=== PATIENT | female | born 1965 | race Two or more races ===

== ENCOUNTER 2016-10-14 | Emergency (ER) | payer OTHER | END 2016-10-14 13:23 | disposition home or self-care (01) ==

== ENCOUNTER 2017-02-26 12:17 | Emergency (ER) | payer OTHER ==
--- NOTE | 2017-02-26 13:10 | ED Physician Documentation ---
PD HPI FOCAL NEURO - Stated complaint Stated Complaint: LEFT SIDE FACE NUMBNESS - Chief complaint Chief Complaint: Neuro - History obtained from History obtained from: Patient - History of Present Illness Timing - onset: Other (She has a history of Gao's palsy once. Starting early this morning she developed a droop of the right side of the face, does not spare the forehead. She denies diplopia, ear pain, loss of hearing, or complaints of weakness, numbness, or tingling in the extremities or headache. 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 : None HEENT: None Psych: None Musculoskeletal: None Derm: None - Past Surgical History Past Surgical History: Yes General: Cholecystectomy /MERGERS AND ACQUISITIONS CONSULTANT: Hysterectomy - Present Medications Home Medications: Ambulatory Orders Medication Instructions Recorded Confirmed Lisinopril [Prinivil] 5 mg PO DAILY 09/12/14 02/26/17 Acyclovir [Zovirax] 800 mg PO 5XD #50 tablet 02/26/17 Propylene Glycol/Peg 400 1 drops LEFTEYE Q1HR PRN #1 bot 02/26/17 [Lubricant Eye Drops] predniSONE [Deltasone] 20 mg PO [id number] #21 tab 02/26/17 - Allergies Allergies/Adverse Reactions: Allergies Allergy/AdvReac Type Severity Reaction Status Date / Time No Known Drug Allergies Allergy Verified 02/26/17 12:33 - Social History Does the pt smoke?: No Smoking Status: Never smoker Does the pt drink ETOH?: No Does the pt have substance abuse?: No - Immunizations Immunizations are current?: Yes - POLST Patient has POLST: No PD ED PE NORMAL - Vitals Vital signs reviewed: Yes - General General: Alert and oriented X 3, No acute distress - HEENT HEENT: PERRL, EOMI, Other (She has a left-sided facial droop that is not severe the forehead. She has no limitation in extraocular movements or weakness of the arms or legs or changes in sensation in the arms or legs. She does have bilateral chronic appearing TM perforations. No evidence of active herpetic lesions or otitis media.) - Neck Neck: Supple, no meningeal sign, No bony TTP - Cardiac Cardiac: RRR, No murmur - Respiratory Respiratory: No respiratory distress, Clear bilaterally - Abdomen Abdomen: Non tender - Neuro Neuro: Alert and oriented X 3, No motor deficit, No sensory deficit, Normal speech - Psych Psych: Normal mood, Normal affect Results - Vitals Vitals: Vital Signs - 24 hr 02/26/17 12:30 Temperature 36.2 C L Heart Rate 82 Respiratory 14 Rate Blood Pressure 153/101 H O2 Saturation 100 Oxygen O2 Source Room air PD MEDICAL DECISION MAKING - ED course ED course: 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 Departure - Departure Disposition: 01 Home, Self Care Clinical Impression: Gao's palsy Condition: Good Record reviewed to determine appropriate education?: Yes Instructions: ED [place] Palsy Prescriptions: Propylene Glycol/Peg 400 [Lubricant Eye Drops] 1 drops LEFTEYE Q1HR PRN #1 bot PRN Reason: Dry Eye predniSONE [Deltasone] 20 mg PO [id number] #21 tab Acyclovir [Zovirax] 800 mg PO 5XD #50 tablet Comments: Call your doctor to arrange a follow up appointment. Make the next available appointment. In the interim return anytime if worse or if new symptoms develop. Your blood pressure was elevated today on check in to the emergency department. This does not mean that you have hypertension, it is a common phenomenon to check into the emergency department and have elevated blood pressure. I recommend that you see your primary care physician within the week to have it rechecked when you're feeling better. Forms: Activity restrictions
[2017-02-26 13:17] VITALS: BP 150/86
== END 2017-02-26 13:18 | disposition home or self-care (01) ==
LOC: ED 12:17
DX: G51.0 Bell's palsy (principal); I10 Essential (primary) hypertension
CPT/HCPCS: 99283

== ENCOUNTER 2018-03-04 19:25 | Emergency (ER) | payer OTHER ==
[2018-03-04] MEDS ORDERED: ACYCLOVIR 200 MG CAPSULE PO STA (20:28)
[2018-03-04] MEDS ORDERED: predniSONE 20 MG TABLET PO STA (20:28)
[2018-03-04] MEDS ORDERED: ERYTHROMYCIN OPHTH OINT 1 GM TUBE EACHEYE STA (20:29)
--- NOTE | 2018-03-04 20:31 | ED Physician Documentation ---
History of Present Illness - Stated complaint Stated Complaint: EYE IRRITATION - Chief complaint Chief Complaint: General - History obtained from History obtained from: Patient, Family - History of Present Illness Timing: Other (This is a 53-year-old woman who is not diabetic, she has had Gao 's palsy before and she complains of 3 days of bilateral eye redness and itchiness with purulent drainage in the mornings but not later. She does not wear contacts and there is no visual deficit. She has had Gao's palsy before and she feels like the left side of her face is just a little numb and like she might be having a recurrence and request medications for that too.) Review of Systems Constitutional: denies: Fever, Chills Eyes: reports: Discharge, Irritation. denies: Loss of vision, Decreased vision , Photophobia Nose: reports: Other (Positive for sneezing). 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 : None HEENT: None Psych: None Musculoskeletal: None Derm: None - Past Surgical History Past Surgical History: Yes General: Cholecystectomy /RESEARCH PROGRAM MANAGER: Hysterectomy - Present Medications Home Medications: Ambulatory Orders Medication Instructions Recorded Confirmed Lisinopril [Prinivil] 5 mg PO DAILY 09/12/14 02/26/17 Acyclovir [Zovirax] 800 mg PO 5XD #50 tablet 02/26/17 Propylene Glycol/Peg 400 1 drops LEFTEYE Q1HR PRN #1 bot 02/26/17 [Lubricant Eye Drops] predniSONE [Deltasone] 20 mg PO [id number] #21 tab 02/26/17 Acyclovir 800 mg PO 5XD 10 Days tablet 03/04/18 Erythromycin Base [Erythromycin] 1 applic OP 5XD 7 Days oint...g. 03/04/18 Mometasone Furoate [Nasonex] 1 spray NS BID #1 spray.pump 03/04/18 predniSONE [Deltasone] 20 mg PO [id number] #21 tab 03/04/18 - Allergies Allergies/Adverse Reactions: Allergies Allergy/AdvReac Type Severity Reaction Status Date / Time No Known Drug Allergies Allergy Verified 03/04/18 19:49 - Social History Does the pt smoke?: No Smoking Status: Never smoker Does the pt drink ETOH?: No Does the pt have substance abuse?: No - Immunizations Immunizations are current?: No - POLST Patient has POLST: No PD ED PE NORMAL - Vitals Vital signs reviewed: Yes - General General: Alert and oriented X 3, No acute distress - HEENT HEENT: PERRL, EOMI, Other (She has bilateral conjunctivitis, visual acuity is normal. I appreciate no facial droop on the left where she points. 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 Eye Opening: Spontaneous Motor: Obeys Commands Verbal: Oriented GCS Score: 15 - Psych Psych: Normal mood, Normal affect Results - Vitals Vitals: Vital Signs - 24 hr 03/04/18 19:48 Temperature 37.0 C Heart Rate 102 H Respiratory 16 Rate Blood Pressure 182/99 H O2 Saturation 98 Oxygen O2 Source Room air PD MEDICAL DECISION MAKING - Sepsis Event Vital Signs: Vital Signs - 24 hr 03/04/18 19:48 Temperature 37.0 C Heart Rate 102 H Respiratory 16 Rate Blood Pressure 182/99 H O2 Saturation 98 Oxygen O2 Source Room air Departure - Departure Disposition: 01 Home, Self Care Clinical Impression: Gao's palsy Conjunctivitis Qualifiers: Conjunctivitis type: acute Acute conjunctivitis type: unspecified Laterality: bilateral Qualified Code(s): H10.33 - Unspecified acute conjunctivitis, bilateral Condition: Good Record reviewed to determine appropriate education?: Yes Instructions: ED Conjunctivitis Nonspecific Prescriptions: Acyclovir 800 mg PO 5XD 10 Days tablet Erythromycin Base [Erythromycin] 1 applic OP 5XD 7 Days oint...g. Mometasone Furoate [Nasonex] 1 spray NS BID #1 spray.pump predniSONE [Deltasone] 20 mg PO [id number] #21 tab Comments: Call your doctor to arrange a follow-up appointment, make the next available appointment. In the interim, return anytime if worse or if new symptoms develop. Your blood pressure was elevated today on check into the emergency department. This does not mean that you have hypertension, it is a common phenomenon to come to the emergency department and have elevated blood pressure. I recommend that you see your primary care physician within the week to have it rechecked when you are feeling better.
[2018-03-04 21:21] VITALS: BP 176/96
== END 2018-03-04 21:17 | disposition home or self-care (01) ==
LOC: ED 19:25
DX: G51.0 Bell's palsy (principal); H10.33 Unspecified acute conjunctivitis, bilateral; I10 Essential (primary) hypertension
CPT/HCPCS: 99283; A9270; J3490; J7512

== ENCOUNTER 2018-11-11 06:38 | Emergency (ER) | payer OTHER ==
--- NOTE | 2018-11-11 07:06 | ED Physician Documentation ---
PD HPI URI - Stated complaint Stated Complaint: SHAKY - Chief complaint Chief Complaint: General - History obtained from History obtained from: Patient - History of Present Illness Timing - onset: Today Timing details: Abrupt onset, Still present (but has improved from the worst of it.) Associated symptoms: Other (she has had some congestion. Was in the shower and had onset of lightheadedness, shakiness, and noted fracial swelling of skin. Mainly forehead and cheeks, around eyes.). No: Fever, Swollen nodes, Dry cough Contributing factors: No: Sick contact, Travel, Immunocompromised Similar symptoms before: Has not had sx before Recently seen: Not recently seen Review of Systems Constitutional: denies: Fever Nose: reports: Congestion Throat: denies: Sore throat Cardiac: denies: Chest pain / pressure, Palpitations Respiratory: denies: Cough GI: reports: Nausea. denies: Abdominal Pain, Vomiting, Diarrhea Skin: reports: Rash (redness with burning feeling on cheeks/forehead. 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 : None HEENT: None Psych: None Musculoskeletal: None Derm: None - Past Surgical History Past Surgical History: Yes General: Cholecystectomy /ROCK WOOL INSULATOR: Hysterectomy - Present Medications Home Medications: Ambulatory Orders Medication Instructions Recorded Confirmed Lisinopril [Prinivil] 2 tab PO DAILY 09/12/14 11/11/18 Mometasone Furoate [Nasonex] 1 spray NS BID #1 spray.pump 03/04/18 11/11/18 - Allergies Allergies/Adverse Reactions: Allergies Allergy/AdvReac Type Severity Reaction Status Date / Time No Known Drug Allergies Allergy Verified 11/11/18 06:44 - Social History Does the pt smoke?: No Smoking Status: Never smoker Does the pt drink ETOH?: No Does the pt have substance abuse?: No - Immunizations Immunizations are current?: No Immunizations: TDAP >10years/unknown - POLST Patient has POLST: No PD ED PE NORMAL - Vitals Vital signs reviewed: Yes - General General: Alert and oriented X 3, No acute distress, Well developed/nourished, Other (some mild edema still on forehead, upper eyelids, and upper cheeks. No Swelling of lips, tongue, uvula.) - HEENT HEENT: Pharynx benign - Neck Neck: Supple, no meningeal sign, No adenopathy - Cardiac Cardiac: RRR, No murmur - Respiratory Respiratory: Clear bilaterally - Abdomen Abdomen: Soft, Non tender - Derm Derm: Normal color, Warm and dry - Extremities Extremities: Normal ROM s pain, No edema, No calf tenderness / cord - Neuro Neuro: Alert and oriented X 3, No motor deficit, Normal speech Results - Vitals Vitals: Vital Signs - 24 hr 11/11/18 11/11/18 06:41 08:39 Temperature 36.6 C 37.2 C Heart Rate 101 H 81 Respiratory 18 14 Rate Blood Pressure 172/115 H 165/97 H O2 Saturation 100 100 Oxygen O2 Source Room air - Labs Labs: Laboratory Tests 11/11/18 11/11/18 07:35 07:35 WBC 5.4 RBC 5.19 Hgb 14.9 Hct 43.8 MCV 84.5 MCH 28.7 MCHC 34.0 RDW 12.9 Plt Count 221 MPV 7.2 L Neut # (Auto) 3.5 Lymph # (Auto) 1.4 L [place] # (Auto) 0.4 Eos # (Auto) 0.1 Baso # (Auto) 0.0 Absolute Nucleated RBC 0.00 Nucleated RBC % 0.0 Sodium 137 Potassium 3.9 Chloride 100 L Carbon Dioxide 26 Anion Gap 11.0 BUN 15 Creatinine 0.6 Estimated GFR (MDRD) 104 Glucose 114 H Calcium 8.9 Magnesium 2.0 Total Bilirubin 0.8 AST 28 ALT 41 Alkaline Phosphatase 75 Total Protein 8.3 H Albumin 4.4 Globulin 3.9 Albumin/Globulin Ratio 1.1 Lipase 35 PD MEDICAL DECISION MAKING - ED course Complexity details: considered differential (facial swelling and feeling shaky/lightheaded in shower. No new meds, soaps, foods. Did not have oral swelling. I don't think it is angioedema per se (on Lisinopril) but seems allergic reaction. I talked with her about potential for med causing it, if persistent/recurrent. ), d/w patient Departure - Departure Disposition: 01 Home, Self Care Clinical Impression: Shakiness, Facial swelling Condition: Stable Record reviewed to determine appropriate education?: Yes Comments: Your blood count and kidney function blood sugar and electrolytes are good. Given the lightheadedness and the facial swelling, I am inclined to think it may be an allergic reaction of some sort. You could use some Benadryl antihistamine through the day if needed for swelling or itching. We will give a dose of steroid here to help improve symptoms. Recheck if not improved over the next couple of days or if recurring symptoms. Drink lots of fluids through the day today. Forms: Activity restrictions Discharge Date/Time: 11/11/18 09:01
[2018-11-11] MEDS ORDERED: diphenhydrAMINE 25 MG CAPSULE PO STA (07:17)
[2018-11-11 07:43] LABS: BASOPHILS % (AUTO) 0.9 %; EOSINOPHILS # (AUTO) 0.1 10^3/uL (0.0-0.7); EOSINOPHILS % (AUTO) 2.2 %; HGB - HEMOGLOBIN 14.9 g/dL (12.0-16.0); LYMPHOCYTES # (AUTO) 1.4 10^3/uL (1.5-3.5); LYMPHOCYTES % (AUTO) 26.4 %; MEAN CORPUSCULAR HEMOGLOBIN 28.7 pg (27.0-31.0); MEAN CORPUSCULAR VOLUME 84.5 fL (81.0-99.0); MEAN PLATELET VOLUME 7.2 fL (7.9-10.8); MONOCYTES # (AUTO) 0.4 10^3/uL (0.0-1.0); MONOCYTES % (AUTO) 6.6 %; NEUTROPHILS # (AUTO) 3.5 10^3/uL (1.5-6.6); NEUTROPHILS % (AUTO) 63.9 %; PLT - PLATELET COUNT 221 10^3/uL (130-450); RED BLOOD COUNT 5.19 10^6/uL (4.20-5.40); RED CELL DISTRIBUTION WIDTH 12.9 % (12.0-15.0); WHITE BLOOD COUNT 5.4 x10^3/uL (4.8-10.8)
[2018-11-11 07:57] LABS: ALBUMIN 4.4 g/dL (3.2-5.5); ALBUMIN/GLOBULIN RATIO 1.1 (1.0-2.2); BILIRUBIN,TOTAL 0.8 mg/dL (0.2-1.0); CREATININE 0.6 mg/dL (0.4-1.0); TOTAL PROTEIN 8.3 g/dL (6.7-8.2)
[2018-11-11 08:04] LABS: CALCIUM 8.9 mg/dL (8.5-10.3)
[2018-11-11] MEDS ORDERED: DEXAMETHASONE 10 MG/ML VIAL PO STA (08:26)
[2018-11-11 08:39] VITALS: BP 165/97
== END 2018-11-11 09:01 | disposition home or self-care (01) ==
LOC: ED 06:38
DX: R25.1 Tremor, unspecified (principal); R42 Dizziness and giddiness; R22.0 Localized swelling, mass and lump, head; I10 Essential (primary) hypertension
CPT/HCPCS: 36415; 80053; 83690; 83735; 85025; 99281; 99283; A9270